=== PATIENT | male | born 1990 | race Caucasian/White ===

== ENCOUNTER 2018-02-27 09:54 | Emergency (ER) | payer SELFPAY ==
[~2018-02-27] VITALS: Ht 185.4 cm; Wt 101.0 kg
[2018-02-27 09:58] VITALS: BP 150/91
[2018-02-27] MEDS ORDERED: IBUPROFEN 800MG TABLET PO ONE (10:30)
== END 2018-02-27 12:00 | disposition home or self-care (01) ==
LOC: ER 11:00
DX: S16.1XXA Strain of muscle, fascia and tendon at neck level, initial encounter (principal); V89.2XXA Person injured in unspecified motor-vehicle accident, traffic, initial encounter; Y93.89 Activity, other specified; Y92.89 Other specified places as the place of occurrence of the external cause; Y99.8 Other external cause status
CPT/HCPCS: 99282

== ENCOUNTER 2023-01-20 22:28 | Emergency (ER) | payer MEDICAID ==
[~2023-01-20] VITALS: Ht 182.9 cm; Wt 110.0 kg
[2023-01-20 22:31] VITALS: O2SAT 99
[2023-01-21 03:13] LABS: BASOPHILS % 0.6 % (0.0-2.0); EOSINOPHILS % 0.2 % (0.0-5.0); HEMATOCRIT. 44.6 % (42.0-52.0); HEMOGLOBIN. 15.2 g/dL (14.0-18.0); LYMPHOCYTES % 45.5 % (20.0-50.0); MEAN CORPUSCULAR HEMOGLOBIN 30.2 pg (28.0-32.0); MEAN CORPUSCULAR HGB CONC 34.1 g/dL (31.0-37.0); MEAN CORPUSCULAR VOLUME 88.4 fL (80.0-94.0); MEAN PLATELET VOLUME 7.9 fl (7.4-10.4); MONOCYTES % 10.1 % (2.0-8.0); NEUTROPHILS % 43.6 % (40.0-76.0); RED BLOOD CELL COUNT 5.04 mill/uL (4.7-6.1); RED CELL DISTRIBUTION WIDTH 15.5 % (11.6-14.6); WHITE BLOOD COUNT 6.5 x1000/uL (4.5-11.0)
[2023-01-21 03:16] LABS: DIFFERENTIAL COMMENT 1; PLATELET 193 x1000/uL (130-400)
[2023-01-21 03:32] LABS: ALANINE AMINOTRANSFERASE 39 IU/L (10-49); ALBUMIN 4.1 g/dL (3.2-4.8); ASPARTATE AMINOTRANSFERASE 39 IU/L (<34); BILIRUBIN TOTAL 0.3 mg/dL (0.1-1.0); CALCIUM 8.3 mg/dL (8.7-10.4); CARBON DIOXIDE 30 mEq/L (21-32); CHLORIDE 107 mEq/L (98-107); CREATININE 0.5 mg/dL (0.6-1.3); GLUCOSE 90 mg/dL (70-105); POTASSIUM 3.5 mEq/L (3.5-5.1); PROTEIN TOTAL 6.9 g/dL (6.0-8.3); SODIUM 147 mEq/L (136-145)
[2023-01-21 04:24] LABS: UREA NITROGEN BLOOD < 5 mg/dL (9-23)
[2023-01-21 04:26] LABS: ETHANOL BLOOD 440 mg/dL (<10)
[2023-01-21 10:43] VITALS: BP 103/64; PULSE 91; RESP 16; TEMP 98.7
== END 2023-01-21 10:45 | disposition home or self-care (01) ==
LOC: ER 22:28
DX: F10.129 Alcohol abuse with intoxication, unspecified (principal); Y90.8 Blood alcohol level of 240 mg/100 ml or more
CPT/HCPCS: 36415; 80053; 80320; 82962; 85025; 99283; G0480